=== PATIENT | female | born 1970 | race Caucasian/White ===

== ENCOUNTER 2025-08-07 20:49 | Inpatient (IN) | payer MEDICAID ==
[~2025-08-07] VITALS: Ht 170.2 cm; Wt 68.2 kg
[2025-08-08 00:37] VITALS: BP 101/73; PULSE 74; RESP 18; TEMP 97.2; O2SAT 99
[2025-08-08 01:18] VITALS: BP 101/73; PULSE 74; RESP 18; TEMP 97
[2025-08-08 08:32] VITALS: BP 90/64; PULSE 71; RESP 18; TEMP 97.9; O2SAT 96
[2025-08-08] MEDS ORDERED: MAG HYDROX/ALUMINUM HYD/SIMETH ES 30 ML SUSPENSION UDCUP PO PRN (10:00)
[2025-08-08] MEDS ORDERED: BENZOCAINE/MENTHOL [CEPACOL] LOZENGE PO PRN (10:00)
[2025-08-08] MEDS ORDERED: ONDANSETRON 4 MG TABLET PO PRN (10:00)
[2025-08-08] MEDS ORDERED: BACITRACIN 28 GM OINTMENT TP PRN (10:00)
[2025-08-08] MEDS ORDERED: LOPERAMIDE HCL 2 MG CAPSULE PO PRN (10:00)
[2025-08-08] MEDS ORDERED: OMEPRAZOLE 20 MG CAPSULE PO PRN (10:00)
[2025-08-08] MEDS ORDERED: PETROLATUM,WHITE 28 GM JELLY TP PRN (10:00)
[2025-08-08] MEDS ORDERED: MAGNESIUM HYDROXIDE SUSPENSION 30 ML UDCUP PO PRN (10:00)
[2025-08-08] MEDS ORDERED: ALBUTEROL SULFATE HFA 90 MCG/PUFF 8 GM INHALER IH PRN (10:00)
[2025-08-08] MEDS ORDERED: DOCUSATE SODIUM 100 MG CAPSULE PO PRN (10:00)
[2025-08-08] MEDS: LITHIUM CARBONATE 300 MG CAPSULE PO SCH (16:57)
[2025-08-08] MEDS: DIVALPROEX SODIUM 500 MG DR TABLET PO SCH (16:57)
[2025-08-08 21:03] VITALS: BP 110/79; PULSE 75; RESP 18; TEMP 97; O2SAT 97
[2025-08-08] MEDS: ZOLPIDEM TARTRATE 10 MG TABLET PO PRN (21:31)
[2025-08-08] MEDS: LURASIDONE HCL 80 MG TABLET PO SCH (21:31)
[2025-08-09 08:17] VITALS: BP 85/52; PULSE 69; RESP 16; TEMP 97.9; O2SAT 96
[2025-08-09 09:00] VITALS: BP 98/79; PULSE 63; RESP 16; TEMP 97.8; O2SAT 100
[2025-08-09 10:01] LABS: APPEARANCE,URINE HAZY (CLEAR); GLUCOSE, URINE (UA) NEGATIVE (NEGATIVE); LEUKOCYTE ESTERASE ,URINE NEGATIVE (NEGATIVE); NITRATE,URINE NEGATIVE (NEGATIVE); OCCULT BLOOD,URINE NEGATIVE (NEGATIVE); PH,URINE DRUG SCREEN 7.0 (5.0-8.0); SPECIFIC GRAVITIY, URINE 1.020 (1.003-1.030)
[2025-08-09 10:09] LABS: ALCOHOL, URINE DRUG SCREEN NEGATIVE (NEGATIVE); AMPHET/METH SCREEN,URINE NEGATIVE (NEGATIVE); BARBITURATE SCREEN, URINE NEGATIVE (NEGATIVE); CANNABINOID SCREEN,URINE NEGATIVE (NEGATIVE); COCAINE SCREEN,URINE NEGATIVE (NEGATIVE); METHADONE SCREEN, URINE NEGATIVE (NEGATIVE)
[2025-08-09 20:35] VITALS: BP 94/65; PULSE 72; RESP 17; TEMP 97.2; O2SAT 97
[2025-08-10 08:20] VITALS: BP 109/72; PULSE 74; RESP 15; TEMP 98.2; O2SAT 98
[2025-08-10 12:01] VITALS: RESP 16
[2025-08-10 13:01] VITALS: RESP 16
[2025-08-10 21:17] VITALS: BP 94/69; PULSE 81; RESP 18; TEMP 98.5
[2025-08-11 08:36] VITALS: BP 92/79; PULSE 106; RESP 16; TEMP 97.1; O2SAT 100
[2025-08-11 20:41] VITALS: BP 105/76; PULSE 68; RESP 16; TEMP 97.4; O2SAT 98
[2025-08-12] VITALS (7 sets, daily range): BP systolic 90–135; BP diastolic 59–119; PULSE 74–91; RESP 16–19; TEMP 96.8–97.9; O2SAT 94–100
[2025-08-12] MEDS: IBUPROFEN 600 MG TABLET PO PRN (17:29)
[2025-08-13 08:17] VITALS: BP 110/69; PULSE 99; RESP 16; TEMP 98.2; O2SAT 98
[2025-08-13 21:10] VITALS: BP 101/72; PULSE 78; RESP 18; TEMP 97.9; O2SAT 99
[2025-08-14 08:26] VITALS: BP 96/76; PULSE 80; RESP 16; TEMP 97.9; O2SAT 99
[2025-08-14 20:14] VITALS: BP 107/67; PULSE 76; RESP 18; TEMP 97.8; O2SAT 97
[2025-08-14 23:15] VITALS: BP 102/76; PULSE 76; RESP 18; TEMP 97.9; O2SAT 100
[2025-08-14 23:25] VITALS: BP 102/76; RESP 17; O2SAT 100
[2025-08-14 23:30] VITALS: BP 93/77; PULSE 65; RESP 17; TEMP 97; O2SAT 97
[2025-08-15] VITALS: BP 98/64; PULSE 64; RESP 17; TEMP 97.1; O2SAT 97
[2025-08-15 00:30] VITALS: BP 90/66; PULSE 61; RESP 17; TEMP 97; O2SAT 97
[2025-08-15 01:30] VITALS: BP 95/58; PULSE 69; RESP 17; TEMP 97.2; O2SAT 97
[2025-08-15 02:30] VITALS: BP 85/57; PULSE 70; RESP 17; TEMP 97.2; O2SAT 99
[2025-08-15 08:09] VITALS: BP 92/60; PULSE 70; RESP 16; TEMP 97.9; O2SAT 98
[2025-08-15 20:07] VITALS: BP 95/71; PULSE 71; RESP 17; TEMP 97.8; O2SAT 99
[2025-08-16 08:24] VITALS: BP 102/82; PULSE 97; RESP 17; TEMP 97.3; O2SAT 99
[2025-08-16 20:16] VITALS: BP 102/72; PULSE 82; RESP 18; TEMP 97.8; O2SAT 100
[2025-08-17 08:20] VITALS: BP 100/77; PULSE 80; RESP 16; TEMP 97.5; O2SAT 100
[2025-08-17] MEDS: ACETAMINOPHEN 325 MG TABLET PO PRN (09:07)
[2025-08-17 09:09] VITALS: BP 108/68; PULSE 77; RESP 18; TEMP 97.8; O2SAT 99
[2025-08-17] MEDS: NICOTINE 21 MG/24 HOUR PATCH TD PRN (09:57)
[2025-08-17 10:15] VITALS: RESP 18
[2025-08-17] MEDS ORDERED: LURA80TA2 PO (13:14)
[2025-08-17] MEDS ORDERED: DIVA-112 PO (13:14)
[2025-08-17] MEDS ORDERED: LITH300C3 PO (13:14)
== END 2025-08-17 17:01 | disposition home or self-care (01) | DRG 750 ==
LOC: B3A 23:17
PROVIDERS: ADMIT Psychiatry & Neurology Psychiatry; ATTEND Psychiatry & Neurology Psychiatry
DX: F32.3 Major depressive disorder, single episode, severe with psychotic features (principal); R45.851 Suicidal ideations; F15.10 Other stimulant abuse, uncomplicated; F41.9 Anxiety disorder, unspecified; G47.00 Insomnia, unspecified; K59.00 Constipation, unspecified
CPT/HCPCS: 80307; 81003; 87081